=== PATIENT | male | born 1970 | race Hispanic/Latino ===

== ENCOUNTER 2022-02-09 16:43 | Emergency (ER) | payer SELFPAY ==
[2022-02-09] MEDS ORDERED: LORazepam 2 MG/ML VIAL IV PRN ×2 (17:42)
[2022-02-09] MEDS ORDERED: levETIRAcetam 1000 MG/NS 0.75% 1,000 MG/100 ML BAG IV ONE ×2 (17:42→17:43)
[2022-02-09] MEDS ORDERED: diazePAM 10 MG/2 ML SYRINGE IV ONE (17:42)
[2022-02-09] MEDS ORDERED: HALOPERIDOL LACTATE 5 MG/1 ML INJ IV PRN (17:42)
[2022-02-09] MEDS ORDERED: THIAMINE 100 MG, FOLIC ACID 1 MG, MULTIPLE VITAMIN INJ, ADULT 10 ML in SODIUM CHLORIDE ... IV NR (17:42)
--- NOTE | 2022-02-09 17:44 | Emergency Department Report ---
ED General Adult HPI - General Chief complaint: Seizure Stated complaint: SEIZURE Time Seen by Provider: 02/09/22 17:31 Source: patient, EMS ( EMS documentation not available at time of chart dictation ), RN notes reviewed Mode of arrival: Stretcher Limitations: No Limitations - History of Present Illness Initial comments: The patient was evaluated in the emergency department for symptoms described in the history of present illness. He/she was evaluated in the context of the global COVID-19 pandemic, which necessitated consideration that the patient might be at risk for infection with the virus that causes COVID-19. Institutional protocols and algorithms that pertain to the evaluation of patients at risk for COVID-19 are in a state of rapid change based on information released by regulatory bodies including the CDC and federal and state organizations. These policies and algorithms were followed during the patient's care in the emergency department. Please note that these policies, procedures and recommendations changed on a rapid basis. This is a 51-year-old gentleman who is visiting from [place]. He reports a history of alcoholism, and possible alcohol withdrawal seizures. His last alcoholic beverage was yesterday. He is brought to the hospital by EMS with a complaint of possible seizure/convulsion. The patient reports that he has mild sensation of tremors and it feels like he is withdrawing slightly. He denies h eadache, neck pain, chest pain, abdominal pain, shortness of breath, nausea, vomiting, diarrhea. He denies urinary symptoms, IV drug use, hallucinations, homicidality and suicidality. He felt much improved in the department after receiving Valium. He reports that he feels ready for discharge at this time, and states that a friend/coworker will be able to pick him up. He cannot recall his last convulsive event -: Sudden Consistency: intermittent Improves with: medication, other (Alcohol consumption) Worsens with: none - Related Data Previous Rx's Medication Instructions Recorded Last Taken Type Multivitamin with Folic Acid [[facility]vs 400 mcg PO QDAY #30 tablet 02/09/22 Unknown Rx One Daily Essential Tablet] chlordiazePOXIDE [Librium] 25 mg PO Q6H PRN #25 capsule 02/09/22 Unknown Rx levETIRAcetam [Keppra TAB] 500 mg PO BID #60 tablet 02/09/22 Unknown Rx Allergies Allergy/AdvReac Type Severity Reaction Status Date / Time No Known Allergies Allergy Verified 02/09/22 16:58 ED Review of Systems ROS: Stated complaint: SEIZURE Other details as noted in HPI Constitutional: denies: fever, malaise ENT: denies: epistaxis Respiratory: denies: cough Cardiovascular: denies: chest pain Gastrointestinal: denies: abdominal pain Genitourinary: denies: dysuria Neurological: as per HPI (Seizure). denies: confusion Psychiatric: denies: auditory hallucinations, visual hallucinations, homicidal thoughts, suicidal thoughts ED Past Medical Hx - Medications Home Medications: Home Medications Medication Instructions Recorded Confirmed Last Taken Type Multivitamin with Folic Acid [Cvs 400 mcg PO QDAY #30 tablet 02/09/22 Unknown Rx One Daily Essential Tablet] chlordiazePOXIDE [Librium] 25 mg PO Q6H PRN #25 capsule 02/09/22 Unknown Rx levETIRAcetam [Keppra TAB] 500 mg PO BID #60 tablet 02/09/22 Unknown Rx ED Physical Exam - General Limitations: No Limitations General appearance: alert, anxious - Head Head exam: Present: atraumatic, normocephalic - Eye Eye exam: Present: normal appearance, PERRL. Absent: nystagmus - ENT ENT exam: Present: normal exam, normal orophraynx, mucous membranes moist, normal external ear exam, other (Tongue fasciculations noted) - Neck Neck exam: Present: normal inspection, full ROM. Absent: tenderness, meningismus - Respiratory Respiratory exam: Present: normal lung sounds bilaterally. Absent: respiratory distress, wheezes, rales, rhonchi, stridor, decreased breath sounds - Cardiovascular Cardiovascular Exam: Present: regular rate, normal rhythm, normal heart sounds. Absent: bradycardia, tachycardia, irregular rhythm, systolic murmur, diastolic murmur, rubs, gallop - GI/Abdominal GI/Abdominal exam: Present: soft. Absent: distended, tenderness, guarding, re bound, rigid, pulsatile mass - Rectal Rectal exam: Present: deferred - Extremities Exam Extremities exam: Present: normal inspection, full ROM, other (2+ pulses noted in the bilateral upper and lower extremities. There is no palpable cord. negative Homans sign. Muscular compartments are soft. The pelvis is stable.). Absent: pedal edema, calf tenderness - Back Exam Back exam: Present: normal inspection. Absent: tenderness, CVA tenderness (R), CVA tenderness (L), paraspinal tenderness, vertebral tenderness - Neurological Exam Neurological exam: Present: alert, oriented X3, normal gait, reflexes normal, other (No facial droop. Tongue midline. Extraocular movements intact bilaterally. Facial sensation intact to light touch in V1, V2, V3 distribution bilaterally. 5 and a 5 strength in 4 extremities. Sensation intact to light touch in 4 extremities.). Absent: motor sensory deficit - Psychiatric Psychiatric exam: Absent: homicidal ideation, suicidal ideation - Skin Skin exam: Present: warm, dry, intact, normal color. Absent: rash ED Course Vital Signs 02/09/22 02/09/22 02/09/22 16:56 17:23 17:30 Temperature Pulse Rate 87 102 H 98 H Respiratory 14 15 16 Rate Blood Pressure 133/89 133/89 Blood Pressure 143/101 [Left] O2 Sat by Pulse 98 95 97 Oximetry 02/09/22 02/09/22 02/09/22 18:00 18:12 18:30 Temperature 99.8 F H Pulse Rate 96 H 95 H Respiratory 17 15 Rate Blood Pressure 130/91 115/94 Blood Pressure [Left] O2 Sat by Pulse 95 97 Oximetry 02/09/22 18:49 Temperature Pulse Rate Respiratory Rate Blood Pressure Blood Pressure [Left] O2 Sat by Pulse 100 Oximetry ED Medical Decision Making - Lab Data Result diagrams: 02/09/22 17:58 02/09/22 17:58 Vital Signs 02/09/22 02/09/22 02/09/22 16:56 17:23 17:30 Temperature Pulse Rate 87 102 H 98 H Respiratory 14 15 16 Rate Blood Pressure 133/89 133/89 Blood Pressure 143/101 [Left] O2 Sat by Pulse 98 95 97 Oximetry 02/09/22 02/09/22 02/09/22 18:00 18:12 18:30 Temperature 99.8 F H Pulse Rate 96 H 95 H Respiratory 17 15 Rate Blood Pressure 130/91 115/94 Blood Pressure [Left] O2 Sat by Pulse 95 97 Oximetry 02/09/22 18:49 Temperature Pulse Rate Respiratory Rate Blood Pressure Blood Pressure [Left] O2 Sat by Pulse 100 Oximetry Temperature 97.4 degrees Lab Results 02/09/22 02/09/22 02/09/22 Range/Units 17:58 17:58 17:58 WBC 8.6 (4.5-11.0) K/mm3 RBC 4.34 (3.65-5.03) M/mm3 Hgb 14.9 (11.8-15.2) gm/dl Hct 44.5 (35.5-45.6) % MCV 103 H (84-94) fl MCH 34 H (28-32) pg MCHC 34 (32-34) % RDW 13.6 (13.2-15.2) % Plt Count 128 L (140-440) K/mm3 Sodium 134 L (137-145) mmol/L Potassium 4.5 (3.6-5.0) mmol/L Chloride 95.3 L (98-107) mmol/L Carbon Dioxide 27 (22-30) mmol/L Anion Gap 16 mmol/L BUN 5 L (9-20) mg/dL Creatinine 0.8 (0.8-1.3) mg/dL Estimated GFR > 60 ml/min BUN/Creatinine Ratio 6 % Glucose 100 (75-100) mg/dL Calcium 9.8 (8.4-10.2) mg/dL Magnesium 2.10 (1.7-2.3) mg/dL Total Bilirubin 0.70 (0.1-1.2) mg/dL AST 48 H (5-40) units/L ALT 41 (7-56) units/L Alkaline Phosphatase 98 (35-129) units/L Total Creatine Kinase 370 H (55-170) units/L Total Protein 7.7 (6.3-8.2) g/dL Albumin 4.6 (3.9-5) g/dL Albumin/Globulin Ratio 1.5 % Salicylates < 0.3 L (2.8-20.0) mg/dL Acetaminophen (10.0-30.0) ug/mL Plasma/Serum Alcohol (0-0.07) % 02/09/22 02/09/22 Range/Units 17:58 17:58 WBC (4.5-11.0) K/mm3 RBC (3.65-5.03) M/mm3 Hgb (11.8-15.2) gm/dl Hct (35.5-45.6) % MCV (84-94) fl MCH (28-32) pg MCHC (32-34) % RDW (13.2-15.2) % Plt Count (140-440) K/mm3 Sodium (137-145) mmol/L Potassium (3.6-5.0) mmol/L Chloride (98-107) mmol/L Carbon Dioxide (22-30) mmol/L Anion Gap mmol/L BUN (9-20) mg/dL Creatinine (0.8-1.3) mg/dL Estimated GFR ml/min BUN/Creatinine Ratio % Glucose (75-100) mg/dL Calcium (8.4-10.2) mg/dL Magnesium (1.7-2.3) mg/dL Total Bilirubin (0.1-1.2) mg/dL AST (5-40) units/L ALT (7-56) units/L Alkaline Phosphatase (35-129) units/L Total Creatine Kinase (55-170) units/L Total Protein (6.3-8.2) g/dL Albumin (3.9-5) g/dL Albumin/Globulin Ratio % Salicylates (2.8-20.0) mg/dL Acetaminophen 5.0 L (10.0-30.0) ug/mL Plasma/Serum Alcohol < 0.01 (0-0.07) % - EKG Data -: EKG Interpreted by Ia EKG shows normal: sinus rhythm Rate: normal - EKG Data 02/09/22 20:59 EKG is interpreted at 17: 25 Sinus rhythm, 97 bpm. Normal axis, normal P wave axis, poor R wave progression, and motion artifact. QTC is four 6-year-old milliseconds. This is an abnormal EKG. There is atrial enlargement. This is not a STEMI. There is no prior for comparison - Radiology Data Radiology results: pending, report reviewed, image reviewed CT head/brain wo con INDICATION: seizure etoh withdrawal. TECHNIQUE: Routine CT head. All CT scans at this location are performed using CT dose reduction for ALARA by means of automated exposure control. COMPARISON: None. FINDINGS: Intracranial: Cabezas-white matter differentiation is maintained. No intracranial hemorrhage. No extra axial collection. No hydrocephalus. No herniation. Sinuses: Paranasal sinuses and mastoid air cells are essentially clear. Orbits: Globes are intact. Calvarium: No acute fracture. IMPRESSION: 1. No acute intracranial abnormality. Signer Name: Manfred Thorpe MD Signed: 02/09/2022 6:02 PM Workstation Name: [id number] - Medical Decision Making Differential diagnosis, include but not limited to: Seizure, convulsion, dehydration, electrolyte derangement, alcohol withdrawal Assessment and plan: 51-year-old gentleman, who is pleasant, calm and cooperative, who is a reported alcoholic, presenting with probable alcohol withdrawal seizure. He is medicated with Keppra, and Valium. Currently, he is resting in his stretcher, in no acute distress, ambulatory with a steady gait, and clinically sober CIWA score 2 Laboratory studies are consistent with chronic alcoholism, such as transaminitis, and thrombocytopenia. Patient does not meet criteria for 1013 hold or involuntary confinement. He is advised to abstain from alcohol consumption. He is counseled to not drive or operate motor vehicles for the next 6 months. We will provide him with outpatient resources. Return precautions are reviewed. All questions answered Critical care attestation.: If time is entered above; I have spent that time in minutes in the direct care of this critically ill patient, excluding procedure time. ED Disposition Clinical Impression: Thrombocytopenia, Alcohol dependence, Transaminitis, Convulsion Disposition: 01 HOME / SELF CARE / HOMELESS Is pt being admited?: No Does the pt Need Aspirin: No Condition: Good Instructions: Alcohol Withdrawal Syndrome, [id number] Additional Instructions: Please follow-up with an outpatient mental health specialist within the next week. Avoid consumption of alcohol, tobacco, smoke products and recreational drugs. Recommend that patient not drive or operate motor vehicles for the next 6 months, or until cleared to do so by her primary care doctor or neurologist Please return to the emergency room right away with new pain, worsened pain, migration of pain, projectile vomiting, change in mental status, confusion, inability tolerate liquid feeds, new, worsened or different symptoms not present on the initial emergency room evaluation professional and Agency Contacts To help [facility] (16/01) [place] Crisis Line: Suicide Prevention Line: Crisis Text Line: Text ``START to 093685 Emergency: 911 Outpatient COMMUNITY Behavioral Health Resources: [facility]: [facility] [address], [place] [address] [facility] [address] [place] [address] Monday thru Monday - 8am - 5pm Call to schedule an assessment for mental health and substance abuse programs [facility] Address: [address], [place] [address] Monday thru Monday- 7am-2pm [facility] Address: [address], [place] [address] Monday thrmonday: 8:30AM-5PM Prescriptions: Multivitamin with Folic Acid [Cvs One Daily Essential Tablet] 400 mcg PO QDAY #30 tablet levETIRAcetam [Keppra TAB] 500 mg PO BID #60 tablet chlordiazePOXIDE [Librium] 25 mg PO Q6H PRN #25 capsule PRN Reason: Alcohol Withdrawal Referrals: [facility] [Provider Group] - 3-5 Days [facility] [Outside] - 3-5 Days [facility] [Outside] - 3-5 Days JAIRO BAUGH MD [Staff Physician] - 3-5 Days
[2022-02-09 18:13] LABS: Hematocrit 44.5 % (35.5-45.6); Hemoglobin 14.9 gm/dl (11.8-15.2); Mean Corpuscular HGB Conc 34 % (32-34); Mean Corpuscular Volume 103 fl (84-94); Red Blood Count 4.34 M/mm3 (3.65-5.03); Red Cell Distribution Width 13.6 % (13.2-15.2)
[2022-02-09 18:27] LABS: Platelet Count 128 K/mm3 (140-440)
[2022-02-09 18:31] LABS: Alanine Aminotransferase 41 units/L (7-56); Albumin 4.6 g/dL (3.9-5); BUN/Creatinine Ratio 6; Blood Urea Nitrogen 5 mg/dL (9-20); Calcium 9.8 mg/dL (8.4-10.2); Hemolysis Index 7
[2022-02-09 18:49] VITALS: BP 115/94
--- NOTE | 2022-02-09 19:06 | Cat Scan Report ---
CT head/brain wo con INDICATION: seizure etoh withdrawal. TECHNIQUE: Routine CT head. All CT scans at this location are performed using CT dose reduction for A LEANNE by means of automated exposure control. COMPARISON: None. FINDINGS: Intracranial: Cabezas-white matter differentiation is maintained. No intracranial hemorrhage. No extra a xial collection. No hydrocephalus. No herniation. Sinuses: Paranasal sinuses and mastoid air cells are essentially clear. Orbits: Globes are intact. Calvarium: No acute fracture. IMPRESSION: 1. No acute intracranial abnormality. Signer Name: Manfred Thorpe MD Signed: 02/09/2022 7:02 PM Workstation Name: [id number]
--- NOTE | 2022-02-10 12:41 | Electrocardiograph Report ---
[facility] Test Date: 2022-02-09 Test Time: 17:25:18 Pat Name: YURIDIA BLACKBURN Department: Room: Gender: M Beet End Supervisor: NURSE : 1970 Requested By: YURIDIA ANNE Order Number: [id number] Reading MD: Gretchen Singh Measurements Intervals [place] Rate: 97 P: 77 NE: 177 QRS: 39 QRSD: 101 T: 42 QT: 361 QTc: 460 Interpretive Statements Sinus rhythm Probable left atrial enlargement Anteroseptal infarct, age indeterminate No previous ECG available for comparison Electronically Signed On 02-10-2022 12:41:03 EDT by Gretchen Singh
== END 2022-02-10 | disposition home or self-care (01) ==
LOC: ED 16:43
DX: D69.6 Thrombocytopenia, unspecified (principal); F10.20 Alcohol dependence, uncomplicated; R74.01 Elevation of levels of liver transaminase levels; R56.9 Unspecified convulsions; Z79.899 Other long term (current) drug therapy; Y90.9 Presence of alcohol in blood, level not specified
CPT/HCPCS: 36415; 70450; 80053; 82550; 83735; 85014; 85018; 85027; 93005; 96365; 96366; 96375; 99284; J1953; J3360; J3411; J3490; J7030; 80320; G0480